=== PATIENT | male | born 1990 | race Caucasian/White ===

== ENCOUNTER → 2024-07-12 14:08 | Outpatient (REF) | payer OTHER, SELFPAY ==
[2024-07-14 13:31] LABS: Varicella Zoster IgG (VZV) Positive
== END ==
LOC: OHS 14:08
PROVIDERS: ATTENDING PHYSICIAN Nurse Practitioner Family
DX: Z23 Encounter for immunization (principal)
CPT/HCPCS: 36415; 86787